=== PATIENT | female | born 2000 | race Caucasian/White ===

== ENCOUNTER 2022-04-12 08:00 | Outpatient (CLI) | payer OTHER ==
--- NOTE | 2022-04-12 17:02 | XRAY Report ---
PROCEDURE: Foot 2 View BILAT INDICATIONS: BILAT FOOT PAIN TECHNIQUE: 2 views of each foot were obtained COMPARISON: None FINDINGS: Bones: No fractures or dislocations. No suspicious bony lesions. Soft tissues: No tibiotalar joint effusion. Achilles tendon appears normal. IMPRESSION: Normal bilateral foot radiographs Reviewed by: Kanu Bradshaw MD on 04/12/2022 4:00 PM AKJUAN Approved by: Kanu Bradshaw MD on 04/12/2022 4:00 PM AKDT Station ID: [id number]
== END 2022-04-12 23:59 | disposition home or self-care (01) ==
LOC: EDBD → DI.N 08:00
PROVIDERS: ATTEND Registered Nurse
DX: M79.671 Pain in right foot (principal); M79.672 Pain in left foot

== ENCOUNTER 2023-02-18 17:12 | Emergency (ER) | payer OTHER ==
[2023-02-18 17:31] VITALS: BP 150/92
--- NOTE | 2023-02-18 18:02 | ED Physician Documentation ---
PD HPI LOWER EXT INJURY - Stated complaint Stated Complaint: L ANKLE PX - Chief complaint Chief Complaint: Ext Problem - History obtained from History obtained from: Patient - History of Present Illness PD HPI LOW EXT INJURY LOCATION: Left, Ankle Timing - duration: Months (2) Pain level max: 5 Pain level now: 4 Improved by: Rest Worsened by: Moving, Palpating Associated symptoms: Swelling. 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 She states that this started after spraining her ankle while on deployment in [employer]. States negative x-rays at that time. States has had continued pain and swelling. She states [place] "does not want to do anything". She tried a brace but it does not fit in her boot. She states she still cannot run. Has not had any physical therapy. She is requesting an MRI. PD PAST MEDICAL HISTORY - Allergies Allergies/Adverse Reactions: Allergies Allergy/AdvReac Type Severity Reaction Status Date / Time No Known Drug Allergies Allergy Verified 02/18/23 17:23 PD ED PE NORMAL - Vitals Vital signs reviewed: Yes - General General: Alert and oriented X 3, No acute distress - Derm Derm: Warm and dry - Extremities Extremities: Other (L ankle - Mild swelling, no ecchymosis. NVI. Mild tenderness over the lateral malleolus.) - Neuro Neuro: Alert and oriented X 3 - Psych Psych: Normal mood, Normal affect Results - Vitals Vitals: Vital Signs - 24 hr 02/18/23 17:23 Temperature 36.5 C Heart Rate 90 Respiratory 16 Rate Blood Pressure 150/92 H O2 Saturation 99 Oxygen O2 Source Room air - Rads (name of study) Left ankle x-ray Relevant Findings:: Final report received, See rad report PD Medical Decision Making - ED course Complexity details: reviewed results, re-evaluated patient, considered differential, d/w patient ED course: 23-year-old female presents to the emergency department with a left ankle injury 2 months ago. Still having pain and swelling. No indication for emergent MRI. No acute findings on x-ray. Recommend she follow-up with her PCP on at the [facility], wear her brace as instructed and likely would benefit from physical therapy. Patient counseled regarding signs and symptoms for which I believe and urgent re-evaluation would be necessary. Patient with good understanding of and agreement to plan and is comfortable going home at this time This document was made in part using voice recognition software. While efforts are made to proofread this document, sound alike and grammatical errors may occur. Departure - Departure Disposition: 01 Home, Self Care Clinical Impression: Left ankle sprain Qualifiers: Encounter type: initial encounter Involved ligament of ankle: unspecified ligam ent Qualified Code(s): S93.402A - Sprain of unspecified ligament of left ankle, initial encounter Condition: Good Instructions: ED Sprain Ankle Follow-Up: [facility] [Provider Group] [facility] [Provider Group] Comments: There are no acute findings on x-ray of your ankle today. This is likely still swelling and pain from the ankle sprain that you had 2 months ago. Recommend that you use the brace as able. Your doctor will likely want to refer you to physical therapy and should consider an MRI of the ankle if you are still failing to improve as expected. They may also consider an orthopedic referral. Forms: PCP List Discharge Date/Time: 02/18/23 18:48
--- NOTE | 2023-02-18 18:31 | XRAY Report ---
PROCEDURE: Ankle 3 View LT INDICATIONS: L ankle injury 2 months ago, cont pain TECHNIQUE: 3 views of the ankle were acquired. COMPARISON: X-ray foot 04/12/2022 FINDINGS: Bones: No fractures or dislocations. Ankle mortise is normally aligned. No suspicious bony lesions . Soft tissues: Achilles tendon appears normal. IMPRESSION: No visualized acute fracture or dislocation. However, occult injury cannot be excluded. Recommend alyce rt interval imaging follow-up in 7-10 days as clinically indicated for additional evaluation. Reviewed by: Gisell Cardona MD on 02/18/2023 6:30 PM PDT Approved by: Gisell Cardona MD on 02/18/2023 6:30 PM PDT Station ID: [id number]
== END 2023-02-18 18:48 | disposition home or self-care (01) ==
LOC: ED 17:12
DX: S93.402A Sprain of unspecified ligament of left ankle, initial encounter (principal); X58.XXXA Exposure to other specified factors, initial encounter
CPT/HCPCS: 99283

== ENCOUNTER 2023-12-14 10:11 | Outpatient (CLI) | payer OTHER ==
--- NOTE | 2023-12-16 15:18 | MRI Report ---
PROCEDURE: Ankle LT WO INDICATIONS: ANKLE PAIN TECHNIQUE: Noncontrast sagittal T1 spin echo and T2 fast spin echo with fat saturation, axial proton density fas t spin echo and T2 fast spin echo with fat saturation, coronal T1 spin echo and T2 fast spin echo wit h fat saturation through the ankle/hindfoot. COMPARISON: Left ankle radiograph dated 02/18/2023. FINDINGS: Image quality: Excellent. Bones and joints: No bone marrow contusions or fractures. No hindfoot coalitions. No osteochondral injuries of the talar dome. No pathologic joint effusions. Medial structures: The posterior tibialis, flexor digitorum longus, and flexor hallucis longus tendo ns are intact. Small to moderate amount of fluid distending flexer tendon sheath is seen. The general repairer ior tibial neurovascular bundle appears normal within the tarsal tunnel, without extrinsic mass effec t. The deltoid ligament and spring ligament are mildly thickened with intrasubstance T2 hyperintense signal. Lateral structures: The anterior talofibular, calcaneofibular, and posterior talofibular ligaments a ppear mildly thickened with intrasubstance T2 hyperintense signal. More superiorly, the anterior and posterior tibiofibular ligaments appear normal, as is the intermalleolar ligament. The tibiofibular syndesmosis is normal in width at 2 mm or less. The peroneus longus and brevis tendons demonstrate normal location and morphology. Adjacent bony peroneal tubercle and retrotrochlear prominence are no rmal in size. The sinus tarsi demonstrates normal fatty signal, without edema, fibrosis, or cyst for mation. Visualized sinus tarsi components (cervical ligament, interosseous talocalcaneal ligament, r oots of the inferior extensor retinaculum) appear normal. Anterior structures: The tibialis anterior, extensor hallucis longus, and extensor digitorum longus tendons appear intact. Posterior and plantar structures: Achilles tendon is intact. Medial and lateral bands of the planta r fascia are of normal thickness. No abductor digiti quinti muscle atrophy to suggest Sims neuropa thy. IMPRESSION: 1. No marrow edema. No fracture or dislocation. No osteochondral injuries of talar dome. No significa nt joint effusion or loose bodies. 2. Low-grade tenosynovitis involving flexor tendons. Extensor and peroneus tendons are intact. 3. Low-grade sprain/intrasubstance partial thickness tear involving medial ankle ligaments. Low-grade sprain also noted involving anterior and posterior talofibular ligaments and calcaneofibular ligamen t. No full-thickness ligament rupture. Reviewed by: Emeka Martinez MD on 12/16/2023 3:17 PM PDT Approved by: Emeka Martinez MD on 12/16/2023 3:17 PM PDT Station ID: [id number]
== END 2023-12-14 10:12 | disposition home or self-care (01) ==
LOC: DI 10:11
DX: S93.492A Sprain of other ligament of left ankle, initial encounter (principal); S93.412A Sprain of calcaneofibular ligament of left ankle, initial encounter; M65.9 Synovitis and tenosynovitis, unspecified